=== PATIENT | female | born 1975 ===

== ENCOUNTER 2022-01-09 06:06 | Day surgery (SDC) | payer OTHER ==
[2022-01-07 08:18] LABS: BASOPHILS ABSOLUTE AUTO 0.04 K/mm3 (0.00-0.23); BASOPHILS PERCENT AUTO 1 % (0-2); EOSINOPHILS ABSOLUTE AUTO 0.06 K/mm3 (0.00-0.68); EOSINOPHILS PERCENT AUTO 1 % (0-6); Hematocrit 42.6 % (33.0-51.0); IMMATURE GRAN ABSOLUTE AUTO 0.01 K/mm3 (0.00-0.10); IMMATURE GRAN PERCENT AUTO 0 % (0-1); LYMPHOCYTES ABSOLUTE AUTO 1.55 K/mm3 (0.84-5.20); LYMPHOCYTES PERCENT AUTO 28 % (21-46); MONOCYTES ABSOLUTE AUTO 0.51 K/mm3 (0.16-1.47); MONOCYTES PERCENT AUTO 9 % (4-13); Mean Corpuscular HGB 31.5 pg (26.0-34.0); Mean Corpuscular HGB Conc 32.9 g/dL (31.5-36.5); Mean Corpuscular Volume 96 fL (80-100); Mean Platelet Volume 10.9 fL (9.1-12.4); NEUTROPHILS ABSOLUTE AUTO 3.37 K/mm3 (1.96-9.15); NEUTROPHILS PERCENT AUTO 61 % (41-73); Platelet Count 233 K/mm3 (150-400); RDW Coefficient Variation 13.1 % (11.7-14.2); RDW Standard Deviation 46.1 fL (35.1-46.3); Red Blood Cell Count 4.45 M/mm3 (3.80-5.20); White Blood Cell Count 5.54 K/mm3 (4.00-11.30)
[~2022-01-09] VITALS: Ht 154.9 cm; Wt 117.4 kg
[2022-01-09] MEDS ORDERED: VITAMIN D310 MC4 PO (06:30)
[2022-01-09] MEDS ORDERED: PIOG15 PO (06:31)
[2022-01-09] MEDS ORDERED: SPIR50 PO (06:32)
[2022-01-09] MEDS ORDERED: FURO40 (06:32)
--- NOTE | 2022-01-09 07:06 | NUR ---
Ambulatory in Day Surgery History, Chart, Medications and Allergies reviewed before start of procedure. Lungs clear T/O to Auscultation.
--- NOTE | 2022-01-09 10:13 | NUR ---
01/09/22 1013 Lamin Krueger DC AT END OF CASE WITH APPROX 800CC CLEAR YELLOW URINE
[2022-01-09] MEDS ORDERED: IBUP400 PO (17:40)
[2022-01-09] MEDS ORDERED: PROM25 PO (17:41)
[2022-01-09] MEDS ORDERED: SIME80CH PO (17:41)
[2022-01-09] MEDS ORDERED: Percocet 5-3251 EACH PO (17:41)
--- NOTE | 2022-01-09 18:19 | NUR ---
DISCHARGE SUMMARY PT STATUS POST FOR TOTAL LAP HYSTER. PT EXPERIENCING MINIMAL PAIN AND TREATED PER EMR. PT VOIDED POST SURGERY. SOME VAGINAL BLEEDING AND CLOTS NOTED. PT UP WALKING IN THE HALLS AND TOLERATING PO INTAKE. 4 LAP SITES WITH DERMABOND TO ABD CDI. ABD BINDER APPLIED PRIOR TO DISCHARGE. DC'D HOME.
== END 2022-01-09 18:08 | disposition home or self-care (01) ==
LOC: ORSCMMR 06:06 → ORD 07:30 → ORSCMMR 07:30 → SURS 11:52 → ORSCMMR 18:08
PROVIDERS: Obstetrics & Gynecology
PROC: 0UT94ZZ Resection of Uterus, Percutaneous Endoscopic Approach (ICD-10-PCS; principal; 2022-01-09 07:30)
PROC: 0UT74ZZ Resection of Bilateral Fallopian Tubes, Percutaneous Endoscopic Approach (ICD-10-PCS; principal; 2022-01-09 07:30)
PROC: 0UT24ZZ Resection of Bilateral Ovaries, Percutaneous Endoscopic Approach (ICD-10-PCS; principal; 2022-01-09 07:30)
PROC: 8E0W4CZ Robotic Assisted Procedure of Trunk Region, Percutaneous Endoscopic Approach (ICD-10-PCS; principal; 2022-01-09 07:30)
DX: N92.1 Excessive and frequent menstruation with irregular cycle (principal); N80.9 Endometriosis, unspecified; R10.2 Pelvic and perineal pain; N84.0 Polyp of corpus uteri; G47.33 Obstructive sleep apnea (adult) (pediatric); K76.0 Fatty (change of) liver, not elsewhere classified; E66.9 Obesity, unspecified; Z68.42 Body mass index [BMI] 45.0-49.9, adult; Z79.899 Other long term (current) drug therapy; Z87.891 Personal history of nicotine dependence
CPT/HCPCS: 58571; S2900; 36415; 82947; 84702; 85025; 86850; 86900; 86901; 88307; A9270; J0171; J0690; J1100; J1885; J2250; J2370; J2405; J2704; J3010; J7120

== ENCOUNTER → 2022-12-22 | Outpatient (CLI) | payer OTHER ==
[~2022-12-22] MED LIST: FURO40; IBUP400 PO; PIOG15 PO; PROM25 PO; Percocet 5-3251 EACH PO; SIME80CH PO; SPIR50 PO; VITAMIN D310 MC4 PO
[2022-12-22 10:52] LABS: Albumin, Blood 3.7 g/dL (3.4-5.0); Albumin/Globulin Ratio 0.9 (0.8-1.8); Bilirubin, Total 0.4 mg/dL (0.1-1.0); Calcium, Blood 9.4 mg/dL (8.5-10.1); Creatinine, Blood 0.76 mg/dL (0.40-1.00); Globulin, Blood 4.3 g/dL (2.2-4.0); Magnesium, Blood 1.7 mg/dL (1.6-2.4); Potassium, Blood 4.3 mmol/L (3.5-5.5)
[2022-12-22 12:24] LABS: Percent Saturation 26.3 % (15.0-50.0)
== END | disposition home or self-care (01) ==
LOC: LAB 09:55 → LAB SHORT 09:55
PROVIDERS: Family Medicine
DX: R25.2 Cramp and spasm (principal); E87.6 Hypokalemia
CPT/HCPCS: 36415; 80053; 82728; 83540; 83550; 83735